=== PATIENT | female | born 1960 | race Caucasian/White ===

== ENCOUNTER → 2019-11-17 | Outpatient (CLI) | payer OTHER ==
[~2019-11-17] MED LIST: B-100 Complex1 EACH PO; Central-Vite1 EAC3 PO; GLIM4 PO; INVOKANA300 MG PO; L-Lysine500 M1 PO; MAGOXI400 PO; METF500C PO; PIOG30 PO; Slo-Niacin250 MG PO
[2019-11-23 06:00] LABS: HPV 16 Negative (Negative); HPV 18 Negative (Negative); HPV OTHER HR TYPES Negative (Negative)
== END | disposition home or self-care (01) ==
LOC: LAB 12:01 → LAB SHORT 12:01
PROVIDERS: Obstetrics & Gynecology
DX: Z01.419 Encounter for gynecological examination (general) (routine) without abnormal findings (principal)
CPT/HCPCS: 87624; G0123

== ENCOUNTER 2020-12-20 07:31 | Day surgery (SDC) | payer OTHER ==
[~2020-12-20] VITALS: Ht 165.1 cm; Wt 74.4 kg
[2020-12-20] MEDS ORDERED: BASAGLAR K100 UNIT/8 (08:00)
[2020-12-20] MEDS ORDERED: FISH OIL 1,2001 EAC7 (08:02)
== END 2020-12-20 09:48 | disposition home or self-care (01) ==
LOC: ORSCSDS 07:31
PROVIDERS: Internal Medicine Gastroenterology
PROC: 0DBN8ZX Excision of Sigmoid Colon, Via Natural or Artificial Opening Endoscopic, Diagnostic (ICD-10-PCS; principal; 2020-12-20 09:00)
PROC: 0DBK8ZX Excision of Ascending Colon, Via Natural or Artificial Opening Endoscopic, Diagnostic (ICD-10-PCS; principal; 2020-12-20 09:00)
DX: Z12.11 Encounter for screening for malignant neoplasm of colon (principal); Z86.010 Personal history of colon polyps; D12.2 Benign neoplasm of ascending colon; D12.5 Benign neoplasm of sigmoid colon; K64.8 Other hemorrhoids; K44.9 Diaphragmatic hernia without obstruction or gangrene; E11.9 Type 2 diabetes mellitus without complications; Z79.4 Long term (current) use of insulin; Z79.899 Other long term (current) drug therapy
CPT/HCPCS: 82947; 88305; J2704; J7120

== ENCOUNTER 2024-12-27 20:54 | Emergency (ER) | payer OTHER, BC ==
[~2024-12-27] VITALS: Ht 165.1 cm; Wt 77.1 kg
[~2024-12-27 20:54] MED LIST changes: +BASAGLAR K100 UNIT/8; +FISH OIL 1,2001 EAC7
[2024-12-27 22:56] VITALS: BP 162/88
== END 2024-12-27 23:50 | disposition home or self-care (01) ==
LOC: ER 20:54
DX: S42.022A Displaced fracture of shaft of left clavicle, initial encounter for closed fracture (principal); Z87.891 Personal history of nicotine dependence; Z88.5 Allergy status to narcotic agent; Z79.84 Long term (current) use of oral hypoglycemic drugs; Z79.4 Long term (current) use of insulin; Z79.899 Other long term (current) drug therapy; V59.88XA Occupant (driver) (passenger) of pick-up truck or van injured in other specified transport accidents, initial encounter
CPT/HCPCS: 73000; 99283-25